=== PATIENT | female | born 1965 | race Caucasian/White ===

== ENCOUNTER → 2017-10-08 | Outpatient (CLI) | payer OTHER ==
[~2017-10-08] MED LIST: FLUO20CA19
== END | disposition home or self-care (01) ==
LOC: CARD 13:56
PROVIDERS: ATTEND Allergy & Immunology
DX: J45.998 Other asthma (principal)
CPT/HCPCS: 94060; 94726; 94729

== ENCOUNTER 2019-06-29 11:39 | Emergency (ER) | payer OTHER ==
[~2019-06-29] VITALS: Ht 162.6 cm; Wt 78.2 kg
--- NOTE | 2019-06-29 11:54 | NUR ---
PT AMBULATORY TO ROOM, STEADY GAIT.
--- NOTE | 2019-06-29 12:01 | NUR ---
ERP TO BEDSIDE, PT SITTING IN BED, CALM, NO SIGNS OF DISTRESS.
--- NOTE | 2019-06-29 12:56 | NUR ---
PT TO IMAGING.
[2019-06-29 13:34] VITALS: BP 128/73
[2019-06-29] MEDS ORDERED: ONDANSETRON ODT 4 MG ONE (13:51)
[2019-06-29] MEDS ORDERED: ONDANSETRON ODT 4 MG PO ONE (14:00)
== END 2019-06-29 14:14 | disposition home or self-care (01) ==
LOC: ED 12:47
DX: S02.2XXA Fracture of nasal bones, initial encounter for closed fracture (principal); S06.0X1A Concussion with loss of consciousness of 30 minutes or less, initial encounter; J45.909 Unspecified asthma, uncomplicated; W19.XXXA Unspecified fall, initial encounter; Y93.89 Activity, other specified; Y92.89 Other specified places as the place of occurrence of the external cause; Y99.8 Other external cause status
CPT/HCPCS: 70450; 70486; 99285; Q0162

== ENCOUNTER 2019-07-08 16:23 | Emergency (ER) | payer OTHER ==
[~2019-07-08] VITALS: Ht 162.6 cm; Wt 80.1 kg
--- NOTE | 2019-07-08 17:07 | NUR ---
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
--- NOTE | 2019-07-08 17:15 | NUR ---
THIS PT WAS SEEN 10 DAYS AGO AFTER FAINTING WHEN SHE STOOD UP AFTER GIVING BLOOD. PT WAS DIAGNOSED WITH A CONCUSSION. PT STATES SHE'S BEEN CONTINUALLY DIZZY AND NAUSEOUS SINCE THEN. PT STATES SHE WAS DOING HOUSE CHORSE THIS AM, MORE ACTIVITY THAN PREVIOUSLY AND IT MADE HER FEEL WORSE.
[2019-07-08 17:49] VITALS: BP 154/70
--- NOTE | 2019-07-08 18:03 | NUR ---
PT LAYING IN BED, EYES CLOSED, RESPIRATIONS EVEN AND UNLABORED, NO SIGNS OF DISTRESS, ALL NEEDS MET AT THIS TIME. WILL CONTINUE TO MONITOR.
--- NOTE | 2019-07-08 18:58 | NUR ---
REPORT GIVEN TO NAKIA ADAM. PT CONDITION UNCHANGED.
--- NOTE | 2019-07-08 18:58 | NUR ---
REPORT FROM NAKIA ELKINS
[2019-07-08] MEDS ORDERED: ONDANSETRON ODT 4 MG PO ONE (19:00)
[2019-07-08] MEDS ORDERED: MECLIZINE CHEWABLE 25 MG TAB PO ONE (19:00)
[2019-07-08] MEDS ORDERED: MECLIZINE CHEWABLE 25 MG TAB ONE (19:12)
[2019-07-08] MEDS ORDERED: ONDANSETRON ODT 4 MG ONE (19:12)
--- NOTE | 2019-07-08 19:22 | NUR ---
PT STATES SHE TOOK ANIVERT AROUND 1500 THIS AFTERNOON. ORDER FOR THIS MEDICATION NON ADMIN'ED
== END 2019-07-08 21:04 | disposition home or self-care (01) ==
LOC: ED 19:45
DX: G44.319 Acute post-traumatic headache, not intractable (principal); R42 Dizziness and giddiness; J45.909 Unspecified asthma, uncomplicated
CPT/HCPCS: 70450; 99284; Q0162

== ENCOUNTER → 2019-10-14 | Outpatient (CLI) | payer OTHER ==
[~2019-10-14] MED LIST changes: +CHOL10003 PO; +DULARA INH; -FLUO20CA19; +FLUO20CA19 PO; +FLUT9.9S NS; +Iron PO; +LORA-439 PO
== END | disposition home or self-care (01) ==
LOC: STAR 09:13
PROVIDERS: ATTEND Specialist
DX: Z01.818 Encounter for other preprocedural examination (principal); Z11.59 Encounter for screening for other viral diseases
CPT/HCPCS: 36415; 87635

== ENCOUNTER 2019-10-18 10:57 | Day surgery (SDC) | payer OTHER ==
[~2019-10-18] VITALS: Ht 162.6 cm; Wt 80.6 kg
[~2019-10-18 10:57] MED LIST changes: +LIDOCAINE 1%-EPI 1:100K, 20ML ONE; +NEOSPORIN OINT, 15GM ONE; +OXYMETAZOLINE NASAL SPRAY 0.05%, 15ML ONE; +THROMBIN 5,000 UNIT VIAL TP ONE
[2019-10-18 11:16] VITALS: BP 121/80
[2019-10-18] MEDS ORDERED: CHLORHEXIDINE 15 ML UDC MM STA (11:16)
[2019-10-18] MEDS ORDERED: CHLORHEXIDINE 15 ML UDC ONE (11:21)
[2019-10-18] MEDS ORDERED: LACTATED RINGERS 1,000 ML IV ONE (11:34)
[2019-10-18] MEDS ORDERED: FENTANYL PF 250 MCG/5ML ONE (14:10)
[2019-10-18] MEDS ORDERED: MIDAZOLAM 1 MG/ML, 2ML ONE (14:10)
[2019-10-18] MEDS ORDERED: NEOSPORIN OINT, 15GM ONE (15:00)
[2019-10-18] MEDS ORDERED: COCAINE TOPICAL SOLN 4%, 4ML ONE (15:01)
[2019-10-18] MEDS ORDERED: DEXAMETHASONE 4 MG/ML, 1ML ONE (15:09)
[2019-10-18] MEDS ORDERED: PROPOFOL 10 MG/ML, 20ML ONE (15:09)
[2019-10-18] MEDS ORDERED: ROCURONIUM 10MG/ML,5ML ONE ×2 (15:09)
[2019-10-18] MEDS ORDERED: ONDANSETRON 2MG/ML, 2ML ONE (15:10)
[2019-10-18] MEDS ORDERED: CEFAZOLIN 1,000 MG ONE (15:23)
[2019-10-18] MEDS ORDERED: MEPERIDINE/PF 25MG/0.5ML IVPush PRN (17:00)
[2019-10-18] MEDS ORDERED: ONDANSETRON 2MG/ML, 2ML IVPush PRN (17:00)
[2019-10-18] MEDS ORDERED: LABETALOL 5MG/ML, 20ML IV PRN (17:00)
[2019-10-18] MEDS ORDERED: FENTANYL PF 100 MCG/2ML IV PRN (17:00)
[2019-10-18] MEDS ORDERED: ACETAMINOPHEN 325 MG TABLET PO PRN (17:00)
[2019-10-18] MEDS ORDERED: PROMETHAZINE 25 MG/ML, 1ML IVPush PRN (17:00)
[2019-10-18] MEDS ORDERED: ACETAMINOPHEN 325 MG TABLET ONE (17:02)
[2019-10-18] MEDS ORDERED: OXYcodone 5 MG/5 ML ORAL.SOL UDC ONE (17:02)
[2019-10-18] MEDS ORDERED: ACETAMINOPHEN 650 MG/20.3 ML UDC ONE (17:02)
[2019-10-18] MEDS: OXYcodone 5 MG/5 ML ORAL.SOL UDC PO PRN ×2 (17:10→17:46)
== END 2019-10-18 18:50 | disposition home or self-care (01) ==
LOC: OUT 10:57
PROVIDERS: ATTEND Specialist
DX: S02.2XXS Fracture of nasal bones, sequela (principal); X58.XXXS Exposure to other specified factors, sequela; J34.2 Deviated nasal septum; J34.3 Hypertrophy of nasal turbinates; J45.909 Unspecified asthma, uncomplicated; Z90.49 Acquired absence of other specified parts of digestive tract; Z98.890 Other specified postprocedural states; Z91.048 Other nonmedicinal substance allergy status; Z79.899 Other long term (current) drug therapy; Z82.49 Family history of ischemic heart disease and other diseases of the circulatory system
CPT/HCPCS: 30140; 30520; 81025; J0690; J1100; J2250; J2405; J2704; J3010; J3490; J7120

== ENCOUNTER 2020-02-25 10:42 | Emergency (ER) | payer OTHER ==
[~2020-02-25] VITALS: Ht 162.6 cm; Wt 84.8 kg
[~2020-02-25 10:42] MED LIST changes: -LIDOCAINE 1%-EPI 1:100K, 20ML ONE; -NEOSPORIN OINT, 15GM ONE; -OXYMETAZOLINE NASAL SPRAY 0.05%, 15ML ONE; -THROMBIN 5,000 UNIT VIAL TP ONE
[2020-02-25 10:50] VITALS: BP 141/84
[2020-02-25] MEDS ORDERED: PROPARACAINE OPHTH 0.5%, 15ML ONE (11:19)
[2020-02-25] MEDS ORDERED: PROPARACAINE OPHTH 0.5%, 15ML EACHEYE ONE (11:30)
== END 2020-02-25 13:27 | disposition home or self-care (01) ==
LOC: ED 12:50
DX: H43.392 Other vitreous opacities, left eye (principal); Z90.49 Acquired absence of other specified parts of digestive tract; J45.909 Unspecified asthma, uncomplicated
CPT/HCPCS: 99282

== ENCOUNTER 2020-10-26 09:45 | Outpatient (CLI) | payer OTHER | END 2020-10-26 23:59 | disposition home or self-care (01) | LOC: CFH 09:45 | PROVIDERS: ATTEND Internal Medicine | DX: Z12.31 Encounter for screening mammogram for malignant neoplasm of breast (principal) | CPT/HCPCS: 77063; 77067 ==